=== PATIENT | male | born 1960 | race African-American/Black ===

== ENCOUNTER 2016-07-01 06:08 | Emergency (ER) | payer OTHER ==
[~2016-07-01] VITALS: Ht 172.7 cm; Wt 95.5 kg
[~2016-07-01 06:08] MED LIST: FLEXERIL10 MG PO; MOTRIN800 MG PO; NOHOMEMEDS; PERCOCET 5/31 TABLET PO; VICODIN 5-3001 EACH PO
[2016-07-01 06:12] VITALS: BP 119/80
[2016-07-01 07:03] LABS: CHLORIDE 106 mEq/L (99-109); POTASSIUM 4.1 mEq/L (3.7-5.4); SODIUM 140 mEq/L (136-147)
[2016-07-01 07:05] LABS: GLUCOSE 101 mg/dL (70-99)
[2016-07-01 07:07] LABS: ANION GAP 12 MEQ/L (2-14)
[2016-07-01 07:09] LABS: GFR ESTIMATE (CALCULATED) 54 mL/min/
[2016-07-01 07:10] LABS: UREA NITROGEN (BUN) 12 mg/dL (9-23)
[2016-07-01 08:21] LABS: SERUM ETHYL ALCOHOL 314 mg/dL
== END 2016-07-01 08:19 ==
LOC: EME 06:08
PROVIDERS: Emergency Medicine
DX: F10.129 Alcohol abuse with intoxication, unspecified (principal); N18.9 Chronic kidney disease, unspecified
CPT/HCPCS: 80048; 99281; 99283; G0480

== ENCOUNTER 2016-09-21 07:48 | Emergency (ER) | payer OTHER ==
[~2016-09-21] VITALS: Ht 172.7 cm; Wt 100.2 kg
[2016-09-21] MEDS ORDERED: TYLENOL REGULA325 MG PO (08:01)
[2016-09-21] MEDS ORDERED: ADVIL200 MG PO (08:02)
[2016-09-21 10:08] LABS: EOSINOPHIL (%) 0.9 % (0-5); EOSINOPHIL COUNT 0.1 K/uL (0-0.3); HEMATOCRIT 35.1 % (38.0-50.0); IMMATURE GRANULOCYTE (%) 0.2 % (0.0-0.7); INSTRUMENT ABS NEUTROPHIL CT 2.7 K/uL; LYMPHOCYTE COUNT 2.2 K/uL (1.0-2.8); MCH 31.1 PG (29.0-34.0); MCHC 34.2 G/DL (30.0-36.0); MCV 90.9 FL (86-99); MEAN PLAT.VOLUME 8.9 uM^3 (9.0-12.4); MONOCYTE (%) 7.1 % (3-12); MONOCYTE COUNT 0.4 K/uL (0-0.8); NEUTROPHIL (%) 50.4 % (45-76); NEUTROPHIL COUNT 2.7 K/uL (1.8-6.4); PLATELET COUNT 174 K/uL (156-360); RBC DIS.WIDTH-CV 12.8 % (11.8-14.6); RBC DIS.WIDTH-SD 41.8 % (39-53); RED BLOOD COUNT 3.86 M/uL (4.00-5.50); WHITE BLOOD COUNT 5.3 K/uL (4.1-10.2)
[2016-09-21 10:17] LABS: CHLORIDE 109 mEq/L (99-109); POTASSIUM 3.8 mEq/L (3.7-5.4); SODIUM 143 mEq/L (136-147)
[2016-09-21 10:18] LABS: GLUCOSE 87 mg/dL (70-99)
[2016-09-21 10:20] LABS: ANION GAP 12 MEQ/L (2-14)
[2016-09-21 10:22] LABS: GFR ESTIMATE (CALCULATED) 58 mL/min/
[2016-09-21 10:23] LABS: UREA NITROGEN (BUN) 12 mg/dL (9-23)
[2016-09-21 10:57] LABS: ADD MIUA? YES; BILIRUBIN NEGATIVE; BLOOD LARGE; COLOR YELLOW ((YELLOW)); GLUCOSE (STRIP) NEGATIVE; KETONES NEGATIVE; LEUKOCYTES NEGATIVE; NITRITE NEGATIVE; PROTEIN (STRIP) 30; SPECIFIC GRAVITY 1.008 (1.000-1.030); UROBILINOGEN 0.2 MG/DL (0.2-1.0)
[2016-09-21 11:03] LABS: BACTERIA RARE /HPF; EPITHELIAL CELLS NONE SEEN /HPF; HYALINE CASTS 0-5 /LPF; MUCUS NONE SEEN /LPF; RED BLOOD CELLS 40-50 /HPF (0-5); UCUL ADDED? NO; WHITE BLOOD CELLS 0-5 /HPF (0-5)
[2016-09-21] MEDS ORDERED: TYLENOL WITH C1 EACH PO (14:06)
[2016-09-21 15:41] VITALS: BP 132/80
== END 2016-09-21 15:53 | disposition home or self-care (01) ==
LOC: EME → EDBD 07:48 → EME 15:53
PROVIDERS: Emergency Medicine
DX: R10.9 Unspecified abdominal pain (principal); R30.0 Dysuria; J45.909 Unspecified asthma, uncomplicated; Z88.0 Allergy status to penicillin; F17.200 Nicotine dependence, unspecified, uncomplicated
CPT/HCPCS: 74176; 80048; 81003; 85025; 99281; 99285

== ENCOUNTER 2016-11-07 05:17 | Emergency (ER) | payer OTHER ==
[~2016-11-07] VITALS: Ht 172.7 cm; Wt 97.7 kg
[~2016-11-07 05:17] MED LIST changes: +ADVIL200 MG PO; +TYLENOL REGULA325 MG PO; +TYLENOL WITH C1 EACH PO
[2016-11-07 06:17] VITALS: BP 105/73
== END 2016-11-07 06:22 ==
LOC: EME 05:17
DX: S00.93XA Contusion of unspecified part of head, initial encounter (principal); W13.8XXA Fall from, out of or through other building or structure, initial encounter; F17.200 Nicotine dependence, unspecified, uncomplicated; Z88.0 Allergy status to penicillin
CPT/HCPCS: 70450; 99281; 99284